=== PATIENT | male | born 1950 | race Two or more races ===

== ENCOUNTER 2019-12-11 07:05 | Outpatient (CLI) | payer OTHER | END 2019-12-11 07:19 | disposition home or self-care (01) | LOC: NUCLEAR 07:05 | DX: I11.0 Hypertensive heart disease with heart failure (principal); I20.8 Other forms of angina pectoris; I48.0 Paroxysmal atrial fibrillation | CPT/HCPCS: 78452; 93017; A9500; J0153 ==